=== PATIENT | female | born 1995 | race Caucasian/White ===

== ENCOUNTER 2018-02-17 10:07 | Emergency (ER) | payer OTHER ==
[~2018-02-17] VITALS: Ht 172.7 cm; Wt 59.1 kg
[2018-02-17] MEDS ORDERED: ketorolac trometh inj. 60 MG/2 ML VIAL IM ONE (12:10)
[2018-02-17] MEDS ORDERED: METH4TAB3 PO (12:11)
[2018-02-17 12:20] VITALS: BP 127/72
== END 2018-02-17 12:22 | disposition home or self-care (01) ==
LOC: ER 10:08
DX: M54.31 Sciatica, right side (principal)
CPT/HCPCS: 72148; 96372; 99284; J1885